=== PATIENT | female | born 1990 | race Caucasian/White ===

== ENCOUNTER 2022-05-05 03:43 | Emergency (ER) | payer SELFPAY ==
[2022-05-05 03:51] VITALS: TEMP 98.2; BMI 25.2
[2022-05-05] MEDS ORDERED: MECLIZINE HCL 25 MG TABLET (FP) PO ONE (04:28)
[2022-05-05] MEDS ORDERED: MECLIZINE HCL 25 MG TABLET (FP) ONE (04:31)
[2022-05-05] MEDS ORDERED: ACETAMINOPHEN 500 MG TABLET (FP) PO ONE (04:35)
[2022-05-05] MEDS ORDERED: ACETAMINOPHEN 325 MG TABLET (FP) ONE (04:38)
[2022-05-05] MEDS ORDERED: DEXAMETHASONE 4 MG TABLET (FP) PO ONE (04:40)
[2022-05-05] MEDS ORDERED: DEXAMETHASONE 4 MG TABLET (FP) ONE (04:42)
[2022-05-05 04:52] LABS: PH,URINE 5.5 (5.0-8.0); URINE APPEARANCE CLEAR; URINE BILIRUBIN NEGATIVE (NEGATIVE); URINE COLOR YELLOW; URINE GLUCOSE (UA) NEGATIVE (NEGATIVE); URINE KETONE NEGATIVE (NEGATIVE); URINE LEUK ESTERASE NEGATIVE (NEGATIVE); URINE NITRITE NEGATIVE (NEGATIVE); URINE PROTEIN NEGATIVE (NEGATIVE); URINE UROBILINOGEN 0.2 mg/dL (0.2-1.0)
[2022-05-05] MEDS ORDERED: METOCLOPRAMIDE HCL INJECTION 10 MG/2 ML VIAL IVPUSH ONE (05:39)
[2022-05-05] MEDS ORDERED: METOCLOPRAMIDE HCL INJECTION 10 MG/2 ML VIAL ONE ×2 (06:15→06:26)
[2022-05-05] MEDS ORDERED: METOCLOPRAMIDE HCL INJECTION 10 MG/2 ML VIAL IVPB ONE (06:22)
[2022-05-05 07:34] LABS: BASO % 0.2 % (0-2.0); EOS % 0.4 % (0-4.5); HEMATOCRIT 39.3 % (32.4-45.2); LYMPH % 16.4 % (8-40); MCH 31.1 pg (25.7-33.7); MEAN CELL VOLUME 94.2 fl (80-96); MONO % 6.7 % (3.8-10.2); NEUT % 76.3 % (42.8-82.8); PLATELET COUNT 281 10^3/uL (134-434); RBC 4.17 M/mm3 (3.60-5.2); RDW 12.7 % (11.6-15.6); WHITE BLOOD COUNT 8.9 K/mm3 (4.0-10.0)
[2022-05-05 07:53] LABS: ALBUMIN 3.8 g/dl (3.4-5.0); BLOOD UREA NITROGEN 8.7 mg/dL (7-18); CALCIUM 8.7 mg/dL (8.5-10.1); MAGNESIUM 1.7 mg/dL (1.8-2.4)
[2022-05-05 07:56] LABS: CREATININE 0.6 mg/dL (0.55-1.3)
[2022-05-05 07:58] LABS: BILIRUBIN,TOTAL 0.4 mg/dL (0.2-1); TOT PROT 7.7 g/dl (6.4-8.2)
[2022-05-05 11:42] VITALS: BP 121/69; PULSE 86; RESP 16
== END 2022-05-05 11:40 | disposition home or self-care (01) ==
LOC: JER 03:43
PROC: 3E033GC Introduction of Other Therapeutic Substance into Peripheral Vein, Percutaneous Approach (ICD-10-PCS; principal; 2022-05-05)
DX: R42 Dizziness and giddiness (principal)
CPT/HCPCS: 36415; 70450-TC; 70551-TC; 80053; 81003; 83735; 84703; 85025; 87077; 87086; 87186; 99285-25

== ENCOUNTER 2024-01-01 23:12 | Emergency (ER) | payer SELFPAY ==
[2024-01-01 23:20] VITALS: BP 100/78; PULSE 96; RESP 18; TEMP 98.5; BMI 25.8
[2024-01-01] MEDS ORDERED: ACETAMINOPHEN 500 MG TABLET (FP) ONE (23:30)
[2024-01-01] MEDS: ACETAMINOPHEN 325 MG TABLET (FP) PO ONE (23:31)
== END 2024-01-02 01:06 | disposition home or self-care (01) ==
LOC: JER 23:12
PROC: 2W3DX1Z Immobilization of Left Lower Arm using Splint (ICD-10-PCS; principal; 2024-01-01)
DX: S60.222A Contusion of left hand, initial encounter (principal); W01.0XXA Fall on same level from slipping, tripping and stumbling without subsequent striking against object, initial encounter; Y92.019 Unspecified place in single-family (private) house as the place of occurrence of the external cause
CPT/HCPCS: 73090-TC-LT-FY; 73110-TC-LT-FY; 73130-TC-LT-FY; 99283-25